=== PATIENT | female | born 2000 | race Caucasian/White ===

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

== ENCOUNTER 2020-07-30 07:16 | Day surgery (SDC) | payer OTHER, SELFPAY ==
[2020-03-23 15:44] VITALS: BMI 24.7
[2020-07-30 07:36] LABS: Internal QC Validated? YES +Cl - CLEAR BKGD; Pregnancy, Urine Negative Negative
[2020-07-30 07:38] VITALS: BP 97/79; PULSE 54; RESP 18; TEMP 36.8; O2SAT 100; BMI 24.7
[2020-07-30] MEDS: Lactated Ringers 1,000 ML 100 ML IV (07:51)
--- NOTE | 2020-07-30 08:45 | TONS_PTH ---
PATIENT: DAMI SCRUGGS [place] [facility] [place][id number] AGE/SX: 20/F ROOM: RE07/30/[address]: Dr. Tejinder Doe MD : 2000 BED: DIS: 07/30/2020 SPEC #: [id number] RECD: 07/30/20 10:59 STATUS: ALEXANDER REAdis #: [id number] SUHA: 07/30/20 08:[address]: Tejinder Doe DEPT: SURGICAL PATHOLOGY RECD BY: Darlene Martinez ENTERED: 07/30/20 13:01 SP TYPE: TONSILS OTHR DR: Dr. Coleen Miller MD Tissues: Tonsil, NOS Procedures: Surgery Specimen Level III HEADER OPERATION: Tonsillectomy PRE-OP DIAGNOSIS: Chronic tonsillitis; hypertrophy of tonsils TISSUE SUBMITTED: Left and right tonsils MICROSCOPIC DIAGNOSIS Right and left tonsils, bilateral tonsillectomies: Benign lymphoid follicular hyperplasia, consistent with chronic tonsillitis. AM:jose 07/31/2020 MICROSCOPIC DESCRIPTION Slides are reviewed. GROSS DESCRIPTION Received is one container labeled with the patient's name and designated left and right tonsil - tie on right are two tonsils that in aggregate weigh 9.7 gm. The right tonsil has a pin-tie on it and measures 3 x 2 x 1.5 cm. The left tonsil measures 3 x 1.8 x 1.5 cm. Both tonsils are similar in appearance. The external surfaces are pink-mendiola, smooth, glistening and somewhat lobulated. Focally they are hemorrhagic, granular and bear cautery artifact. Serial cross sections through the tonsils reveal normal tonsillar architecture. Sections are submitted in two cassettes as follows: 1 - right tonsil, 2 - left tonsil. / SHANIA:jose 07/30/20 TC:5 CPT: 36165 x2
--- NOTE | 2020-07-30 08:49 | PCM.DC.SUM ---
Providers Primary Care Physician: Dr. Coleen Miller MD Reason For Visit: TONSILLECTOMY Medications at Discharge Home Medications NK 05/13/19 ABG / Lab / Microbiology Data Laboratory: Laboratory Results - last 24 hr 07/30/20 07:30 Urine Test Negative Microbiology: Microbiology 07/27/20 10:00 Interface Orders SARS-CoV-2 Antigen (Rapid) - Final Meaningful Use Info Meaningful Use Diagnoses (Choose all that apply): None applicable Discharge Plan Admission Primary Reason for Your Visit: tonsillectomy Attending Provider: Tejinder Doe Primary Care Provider: Coleen Miller Instructions Additional Instructions / Restrictions: soft diet x 2 weeks Discharge Orders/Prescriptions Prescriptions: No Action NK RF: 0 Referrals / Follow Up: Coleen Miller MD [Primary Care Provider] -
--- NOTE | 2020-07-30 09:20 | OP.PCM_ITS ---
Report of Operation Date of Procedure: 07/30/20 Pre-Operative Diagnosis: chronic tonsillitis tonsillar hypertrophy Post-Operative Diagnosis: same Surgery/Procedure Performed:: Tonsillectomy Surgeon: Teijnder Doe Type of Anesthesia: General Anesthesiologist: Yair Anderson Estimated Blood Loss (mL): minimal Description of Procedure: The patient was taken to the OR on 07/30/20. The patient was placed in the supine position on the OR table. The patient was given sufficient general endotracheal anesthesia. The table was turned 90 degrees lei ckwise. A Erik mouthgag was inserted into the patient's mouth. The patient was suspended on a Locke stand. The right tonsil was grasped with an Allis clamp and removed using a bovie cautery. Absolute hemostasis was achieved using suction cautery. The left tonsil was grasped with an Allis clamp and removed using a bovie cautery. Absolute hemostasis was achieved using suction cautery. .5% marcaine was placed on an adenoid sponge and placed in each tonsillar fossa for one minute on each side and then removed. The gag was closed. It was re opened to inspect for bleeding and there was none. The gag was then removed. The patient was then awoken and brought to the recovery room in stable condition. Blood loss minimal, replacement none. Sponge, needle and instrument count were correct at the end of the procedure.
[2020-07-30] MEDS: Bupivacaine Mpf 0.5% 30 ML VIAL (09:46)
[2020-07-30 10:07] VITALS: BP 113/72; BP 97/79; PULSE 80; RESP 18; TEMP 36.3; O2SAT 100
[2020-07-30 10:15] VITALS: BP 109/67; BP 97/79; PULSE 69; RESP 16; O2SAT 100
[2020-07-30 10:30] VITALS: BP 101/67; BP 97/79; PULSE 74; RESP 16; O2SAT 100
[2020-07-30 10:45] VITALS: BP 104/61; BP 97/79; PULSE 54; RESP 16; TEMP 36.3; O2SAT 100
[2020-07-30] MEDS: HYDROcodone Bitartrate/Apap 5/325 Tablet PO (11:09)
[2020-07-30 12:36] VITALS: BP 100/52; BP 97/79; PULSE 60; RESP 16; TEMP 36.9; O2SAT 100
== END 2020-07-30 12:38 ==
LOC: SDC 07:18 → AC 07:18
PROVIDERS: Anesthesiology; PCP Pediatrics; Referring Provider Otolaryngology; Visit Provider Otolaryngology
PROC: (CPT 42826; principal; 2020-07-30 08:30)
DX: J35.01 Chronic tonsillitis (principal); Z20.822 Contact with and (suspected) exposure to COVID-19
CPT/HCPCS: 00170; 42826; 81025; 87426; 88304; C9803; J7120; J2405

== ENCOUNTER → 2022-01-15 | Outpatient (CLI) | payer OTHER, SELFPAY ==
[2022-01-15 10:10] LABS: HIV - WCH Non-Reactive (Nonreactive)
[2022-01-16 14:09] LABS: HCV Quant. RNA PCR HCV Not Detected IU/mL (.)
[2022-01-16 16:17] LABS: HSV 2 IgG < 0.91 index (0.00-0.90)
[2022-01-16 22:07] LABS: Chlamydia By Nucleic Acid AMP Negative (Negative)
[2022-01-18 19:27] LABS: Gonococcus By Nucleic Acid AMP Negative (Negative)
[2022-01-22 19:42] LABS: HPV Reflexed? NOT INDICATED
== END | disposition home or self-care (01) ==
LOC: PAVLAB 09:03
PROVIDERS: PCP Pediatrics; Referring Provider Obstetrics & Gynecology; Visit Provider Obstetrics & Gynecology
DX: Z12.4 Encounter for screening for malignant neoplasm of cervix (principal); Z20.2 Contact with and (suspected) exposure to infections with a predominantly sexual mode of transmission
CPT/HCPCS: 36415; 86695; 86696; 86703; 87491; 87522; 87591; 88175; G0145

== ENCOUNTER → 2022-04-27 | Outpatient (CLI) | payer OTHER, SELFPAY ==
--- NOTE | 2022-04-27 08:54 | MRI_ITS ---
EXAM: MR LEFT LOWER EXTREMITY WITHOUT INTRAVENOUS CONTRAST, ANKLE CLINICAL INDICATION: LEFT ANKLE,SPRAIN OF TIBIOFIBULAR LIGAMENT TECHNIQUE: Multiplanar and multisequence MR images of the left ankle without intravenous contrast. This report was created using [employer] report generation technology. COMPARISON: None. FINDINGS: LIGAMENTS: ANTERIOR TALOFIBULAR: Unremarkable. Intact. POSTERIOR TALOFIBULAR: Unremarkable. Intact. ANTERIOR TIBIOFIBULAR: Unremarkable. Intact. POSTERIOR TIBIOFIBULAR: Unremarkable. Intact. CALCANEOFIBULAR: Unremarkable. Intact. DELTOID: Unremarkable. Intact. SPRING: Unremarkable. Intact. LISFRANC: Unremarkable. Intact. TENDONS: ACHILLES: Unremarkable. Intact. FLEXOR: Unremarkable. Intact. EXTENSOR: Unremarkable. Intact. PERONEAL: Unremarkable. Intact. TIBIALIS ANTERIOR: Unremarkable. Intact. TIBIALIS POSTERIOR: Unremarkable. Intact. MUSCLES: Unremarkable. Normal bulk and signal. FLUID: Moderate ankle joint effusion. Small subtalar joint effusion. SINUS TARSI: Unremarkable. Normal fat in the sinus tarsi. TARSAL TUNNEL: Unremarkable. PLANTAR FASCIA: Unremarkable. Intact. CARTILAGE: Unremarkable. No osteochondral lesion. Articular cartilage intact. BONES/JOINTS: Os naviculare. No marrow edema to indicate os naviculare syndrome. Marrow signal is normal. There is no fracture, bone contusion or osteonecrosis. Talar dome intact. OTHER SOFT TISSUES: Unremarkable. MRI/Lower Ext Joint Only (Routine) IMPRESSION: Ankle and subtalar joint effusions. Otherwise negative study. Electronically Signed: Nany Harvey MD at 23:46 EST Reading Location ID and State: [id number] / Tel , Service support ,
== END | disposition home or self-care (01) ==
PROVIDERS: PCP Pediatrics
DX: S93.432A Sprain of tibiofibular ligament of left ankle, initial encounter (principal); X58.XXXA Exposure to other specified factors, initial encounter
CPT/HCPCS: 73721

== ENCOUNTER → 2024-03-11 | Outpatient (CLI) | payer OTHER, SELFPAY ==
[2024-03-14 20:07] LABS: Chlamydia By Nucleic Acid AMP Negative (Negative); Gonococcus By Nucleic Acid AMP Negative (Negative)
== END | disposition home or self-care (01) ==
LOC: LABSPEC 16:31
PROVIDERS: Referring Provider Obstetrics & Gynecology; Visit Provider Obstetrics & Gynecology
DX: Z11.3 Encounter for screening for infections with a predominantly sexual mode of transmission (principal)
CPT/HCPCS: 87491; 87591